=== PATIENT | male | born 1965 | race Asian ===

== ENCOUNTER 2019-05-17 10:25 | Emergency (ER) | payer SELFPAY ==
[~2019-05-17] VITALS: Ht 167.6 cm; Wt 65.0 kg
[2019-05-17] MEDS ORDERED: AMOXICILLIN/POTASSIUM CLAVULANATE 875/125MG TAB PO ONE (14:30)
[2019-05-17 15:04] VITALS: BP 137/74
== END 2019-05-17 15:15 | disposition left against medical advice (07) ==
LOC: ER 10:25
DX: S02.32XA Fracture of orbital floor, left side, initial encounter for closed fracture (principal); S02.69XA Fracture of mandible of other specified site, initial encounter for closed fracture; Y04.2XXA Assault by strike against or bumped into by another person, initial encounter; Y93.89 Activity, other specified; Y92.89 Other specified places as the place of occurrence of the external cause; R03.0 Elevated blood-pressure reading, without diagnosis of hypertension
CPT/HCPCS: 70486; 99284